=== PATIENT | female | born 1985 | race Caucasian/White ===

== ENCOUNTER 2017-08-28 11:54 | Inpatient (IN) | payer MEDICAID ==
[2017-08-28] MEDS: BETAMET NA PHOS/AC(6 MG/ML) 5ML INJ IM (13:59)
[2017-08-28 14:19] LABS: ADD UMIC NO; UR ASCORBIC ACID NEGATIVE (NEGATIVE); UR BILIRUBIN (Dip) NEGATIVE (NEGATIVE); UR BLOOD (Dip) NEGATIVE (NEGATIVE); UR CLARITY CLEAR (CLEAR); UR COLOR STRAW (YELLOW); UR GLUCOSE (Dip) NEGATIVE (NEGATIVE); UR KETONES (Dip) NEGATIVE (NEGATIVE); UR LEUKOCYTE ESTERASE (Dip) NEGATIVE Leu/ul (NEGATIVE); UR NITRITE (Dip) NEGATIVE (NEGATIVE); UR SPECIFIC GRAVITY (Dip) 1.011 (1.003-1.030); UR TOTAL PROTEIN (Dip) NEGATIVE (NEGATIVE); UR UROBILINOGEN (Dip) NEGATIVE (NEGATIVE)
[2017-08-28 14:28] LABS: ADD MAN DIFF? NO
[2017-08-28 14:30] LABS: WHITE BLOOD COUNT 9.3 10^3/ul (4.8-10.8)
[2017-08-28 14:30] LABS: BASOPHIL # 0.1 10^3/ul (0.0-0.1); BASOPHILS % 0.6 % (0.0-2.0); EOSINOPHILS # 0.1 10^3/ul (0.0-0.5); EOSINOPHILS % 1.4 % (0.0-7.0); HEMOGLOBIN 13.7 g/dl (12.0-16.0); LYMPHOCYTES # 1.6 10^3/ul (0.8-2.9); LYMPHOCYTES % 17.2 % (15.0-51.0); MEAN CORPUSCULAR HEMOGLOBIN 31.3 pg (29.0-33.0); MEAN CORPUSCULAR HGB CONC 34.3 g/dl (32.0-37.0); MEAN CORPUSCULAR VOLUME 91.3 fl (82.0-101.0); MONOCYTE # 0.9 10^3/ul (0.3-0.9); MONOCYTES % 10.1 % (0.0-11.0); NEUTROPHIL # 6.6 10^3/ul (1.6-7.5); NEUTROPHILS % 70.5 % (39.0-77.0); PLATELET COUNT 274 10^3/UL (140-415); RED BLOOD COUNT 4.38 10^6/ul (4.20-5.40); RED CELL DISTRIBUTION WIDTH 12.6 % (11.5-14.5)
[2017-08-28 14:48] LABS: URIC ACID 4.1 mg/dl (3.1-7.9)
[2017-08-28 14:49] LABS: ALANINE AMINOTRANSFERASE 20 IU/L (13-69); ALBUMIN 3.4 g/dl (3.3-4.9); ALKALINE PHOSPHATASE 222 IU/L (42-121); ANION GAP 13 (8-16); ASPARTATE AMINO TRANSFERASE 15 IU/L (15-46); BILIRUBIN,INDIRECT 0.1 mg/dl (0-1.1); BILIRUBIN,TOTAL 0.1 mg/dl (0.2-1.3); BLOOD UREA NITROGEN 9 mg/dl (7-20); CALCIUM 9.5 mg/dl (8.4-10.2); CARBON DIOXIDE 23 mmol/L (21-31); CHLORIDE 106 mmol/L (97-110); CREATININE 0.57 mg/dl (0.44-1.00); GLUCOSE 66 mg/dl (70-220); POTASSIUM 4.5 mmol/L (3.5-5.1); SODIUM 137 mmol/L (135-144); TOTAL PROTEIN 6.8 g/dl (6.1-8.1)
[2017-08-28 14:51] LABS: INR 0.89; PARTIAL THROMBOPLASTIN TIME 25.9 Sec (25.0-35.0); PROTIME 12.1 Sec (11.9-14.9); PT RATIO 0.9
[2017-08-28] MEDS: LACTATED RINGER'S 1,000 ML IV ×2 (17:15→21:05)
[2017-08-29] MEDS: ACETAMINOPHEN 500 MG TAB PO (01:42)
[2017-08-29] MEDS: LACTATED RINGER'S 1,000 ML IV ×3 (05:00→17:19)
[2017-08-29 13:29] LABS: COLLECTION PERIOD 24 hrs
[2017-08-29 13:45] LABS: COLLECTION PERIOD 24 hrs; SCRET 0.57 mg/dl (0.44-1.00); VOLUME 3100 ml/24hrs; VOLUME 3100 mls
[2017-08-29 14:02] LABS: CREATININE CLEARANCE 172.4 mls/min (84.0-162.0); CREATININE,URINE RANDOM 45.66 mg/dl (20-320)
[2017-08-29] MEDS: BETAMET NA PHOS/AC(6 MG/ML) 5ML INJ IM (14:09)
[2017-08-29 15:23] LABS: RAPID PLASMA REAGIN NONREACTIVE (NR)
[2017-08-30] MEDS: LACTATED RINGER'S 1,000 ML IV ×3 (01:13→18:06)
[2017-08-30] MEDS ORDERED: OXYTOCIN 30 UNITS/LR 500 ML BAG IV (07:00)
[2017-08-30] MEDS ORDERED: morphine SULFATE/PF (10 MG/10 ML) INJ (10:12)
[2017-08-30] MEDS ORDERED: ONDANSETRON 4 MG INJ (10:13)
[2017-08-30] MEDS ORDERED: OXYTOCIN 10 UNIT INJ (10:13)
[2017-08-30] MEDS ORDERED: PHENYLephrine (100 MCG/ML) 5ML SYG (10:13)
[2017-08-30] MEDS ORDERED: BUPIVACAINE 0.75%/DEXT (SPINAL) 2 ML INJ (10:16)
[2017-08-30] MEDS: CEFAZOLIN 2 GM/50 ML (PMX) 50 ML IVPB (10:20)
[2017-08-30] MEDS ORDERED: NALOXONE (0.4 MG/ML) INJ IV (12:00)
[2017-08-30] MEDS ORDERED: DIPHENHYDRAMINE 50 MG INJ IV (12:00)
[2017-08-30] MEDS ORDERED: morphine 2 MG INJ IV (12:00)
[2017-08-30] MEDS: OXYTOCIN 30 UNITS/LR 500 ML IV ×3 (13:55→22:28)
[2017-08-30] MEDS: KETOROLAC 30 MG INJ IV ×2 (16:08→23:32)
[2017-08-30] MEDS: ONDANSETRON 4 MG INJ IV (20:18)
[2017-08-31] MEDS: LACTATED RINGER'S 1,000 ML IV (01:47)
[2017-08-31] MEDS: HYDROCODONE/APAP (5/325) TAB PO ×2 (10:57→19:59)
[2017-08-31 12:20] LABS: ADD MAN DIFF? NO
[2017-08-31 12:24] LABS: BASOPHILS % 0.3 % (0.0-2.0); EOSINOPHILS % 0.4 % (0.0-7.0); HEMATOCRIT 36.5 % (37.0-47.0); HEMOGLOBIN 12.1 g/dl (12.0-16.0); LYMPHOCYTES # 1.8 10^3/ul (0.8-2.9); MEAN CORPUSCULAR HEMOGLOBIN 30.9 pg (29.0-33.0); MEAN CORPUSCULAR HGB CONC 33.2 g/dl (32.0-37.0); MEAN CORPUSCULAR VOLUME 93.4 fl (82.0-101.0); MONOCYTES % 9.7 % (0.0-11.0); NEUTROPHIL # 7.1 10^3/ul (1.6-7.5); NEUTROPHILS % 70.6 % (39.0-77.0); PLATELET COUNT 236 10^3/UL (140-415); RED BLOOD COUNT 3.91 10^6/ul (4.20-5.40); RED CELL DISTRIBUTION WIDTH 13.2 % (11.5-14.5)
[2017-08-31 12:50] LABS: ANION GAP 8 (8-16); BLOOD UREA NITROGEN 8 mg/dl (7-20); CALCIUM 8.7 mg/dl (8.4-10.2); CARBON DIOXIDE 31 mmol/L (21-31); CHLORIDE 107 mmol/L (97-110); CREATININE 0.58 mg/dl (0.44-1.00); GLUCOSE 72 mg/dl (70-220); POTASSIUM 4.7 mmol/L (3.5-5.1); SODIUM 141 mmol/L (135-144)
[2017-08-31] MEDS: IBUPROFEN 600 MG TAB PO ×2 (15:02→23:08)
[2017-09-01] MEDS: HYDROCODONE/APAP (5/325) TAB PO ×4 (05:41→21:05)
[2017-09-01] MEDS: IBUPROFEN 600 MG TAB PO ×2 (14:22→22:49)
[2017-09-01] MEDS: ACETAMINOPHEN 325 MG TAB PO (20:33)
[2017-09-02] MEDS: IBUPROFEN 600 MG TAB PO ×2 (06:28→13:51)
== END 2017-09-02 16:10 | disposition home or self-care (01) | DRG 765 ==
LOC: L-D 11:54 → PP1 08-31 16:44 → L-D 08-30 10:04 → PP1 08-30 15:53
PROC: 10D00Z1 Extraction of Products of Conception, Low, Open Approach (ICD-10-PCS; principal; 2017-08-30)
DX: O60.14X0 Preterm labor third trimester with preterm delivery third trimester, not applicable or unspecified (principal); Z68.41 Body mass index [BMI] 40.0-44.9, adult; O76 Abnormality in fetal heart rate and rhythm complicating labor and delivery; O99.214 Obesity complicating childbirth; E66.9 Obesity, unspecified; Z3A.34 34 weeks gestation of pregnancy; Z37.0 Single live birth
CPT/HCPCS: 80048; 80053; 81003; 82575; 82962; 84156; 84560; 85025; 85384; 85610; 85730; 86592; 86900; 86901; 88302; 94760; 99464